=== PATIENT | female | born 1985 | race Hispanic/Latino ===

== ENCOUNTER 2022-06-24 07:42 | Outpatient (CLI) | payer BC, OTHER | END 2022-06-24 07:43 | disposition home or self-care (01) | LOC: CSHLAB 07:42 | PROVIDERS: ATTEND Obstetrics & Gynecology | DX: Z20.822 Contact with and (suspected) exposure to COVID-19 (principal) | CPT/HCPCS: 87811 ==

== ENCOUNTER 2022-06-28 05:21 | Inpatient (IN) | payer BC, OTHER ==
[2022-06-28] MEDS ORDERED: Promethazine HCl 25 MG/ML VIAL IM PRN (05:45)
[2022-06-28] MEDS ORDERED: Ondansetron PF 4 MG/2 ML Vial IVP PRN ×2 (05:45→16:12)
[2022-06-28] MEDS ORDERED: Lidocaine 1% (PF) 30 ML VIAL SC PRN (05:45)
[2022-06-28] MEDS ORDERED: Ibuprofen 800 MG TAB PO PRN (05:45)
[2022-06-28] MEDS ORDERED: NS w/ Oxytocin 30 units 500 ML IV SCH ×2 (05:45)
[2022-06-28] MEDS ORDERED: HYDROcodone/Acetaminophen 5/325 mg Tablet PO PRN ×3 (05:45→16:12)
[2022-06-28] MEDS ORDERED: hydrALAZINE 20 MG/ML VIAL SLOW IVP PRN ×2 (05:45→16:12)
[2022-06-28 05:47] VITALS: BMI 32.9
[2022-06-28 06:26] LABS: Hemoglobin 12.2 g/dL (12.0-15.5); Mean Corpuscular HGB CONC 34.3 g/dL (32.0-36.0); Mean Corpuscular Hemoglobin 26.9 pg (27.0-33.0); Mean Corpuscular Volume 78.6 fl (81.6-98.3); Platelet Count 275 10x3/uL (150-450); RBC Distribution Width 13.4 % (11.5-14.5); Red Blood Cell (RBC) Count 4.53 10x6/uL (3.90-5.03); White Blood Cell (WBC) Count 9.7 10x3/uL (3.5-10.5)
[2022-06-28 07:03] LABS: HBSAg Index 0.22 S/CO (0-0.99); Hep B Surf Ag Non-Reactive S/CO (NonReactive)
[2022-06-28 07:43] LABS: Syphilis Antibody Nonreactive (Nonreactive); Syphilis Antibody Index 0.03 S/CO (<1.00 Non-Reactive)
[2022-06-28] MEDS: Lactated Ringer's 1,000 ML IV SCH ×2 (08:03→14:06)
[2022-06-28] MEDS: Misoprostol 200 MCG TAB ONE ×2 (15:12→17:59)
[2022-06-28] MEDS ORDERED: Bisacodyl 10 MG SUPP PR PRN (16:12)
[2022-06-28] MEDS ORDERED: Boostrix 0.5 ML (Tdap) VIAL (>/=7 yrs of age) IM ONE (16:12)
[2022-06-28] MEDS ORDERED: diphenhydrAMINE 25 MG CAP PO PRN (16:12)
[2022-06-28] MEDS ORDERED: Benzocaine-Menthol 82.5 ML CAN TOP PRN (16:12)
[2022-06-28] MEDS ORDERED: Milk Of Magnesia 30 ML UDCUP PO PRN (16:12)
[2022-06-28] MEDS ORDERED: Lanolin Ointment 7 GM TUBE TOP PRN (16:12)
[2022-06-28] MEDS ORDERED: Preparation H Ointment 28 GM TUBE PR PRN (16:12)
[2022-06-28] MEDS ORDERED: Misoprostol 200 MCG TAB PR SCH (16:15)
[2022-06-28] MEDS: Ferrous Sulfate 325 MG TAB PO SCH (17:59)
[2022-06-28] MEDS: Docusate 100 MG CAP PO SCH (21:19)
[2022-06-28] MEDS: HYDROcodone/Acetaminophen 5/325 mg Tablet PO PRN (21:20)
[2022-06-28] MEDS: Ibuprofen 800 MG TAB PO SCH (21:21)
[2022-06-29] MEDS: Ibuprofen 800 MG TAB PO SCH ×3 (05:29→21:10)
[2022-06-29] MEDS: Docusate 100 MG CAP PO SCH ×2 (09:12→21:10)
[2022-06-29] MEDS: Prenatal Vitamin 1 TAB PO SCH (09:13)
[2022-06-29] MEDS: HYDROcodone/Acetaminophen 5/325 mg Tablet PO PRN (09:13)
[2022-06-29] MEDS: Ferrous Sulfate 325 MG TAB PO SCH ×2 (09:14→16:19)
[2022-06-30] MEDS: HYDROcodone/Acetaminophen 5/325 mg Tablet PO PRN (02:16)
[2022-06-30] MEDS: Ibuprofen 800 MG TAB PO SCH ×2 (05:36→14:08)
[2022-06-30 08:29] VITALS: BP 99/54; TEMP 98
[2022-06-30] MEDS: Docusate 100 MG CAP PO SCH (08:37)
[2022-06-30] MEDS: Prenatal Vitamin 1 TAB PO SCH (08:37)
[2022-06-30] MEDS: Ferrous Sulfate 325 MG TAB PO SCH (08:38)
== END 2022-06-30 16:00 | disposition home or self-care (01) | DRG 807 ==
LOC: CSHLD 05:21 → CSHPP 17:12
PROVIDERS: ADMIT Obstetrics & Gynecology; ATTEND Obstetrics & Gynecology
PROC: 10E0XZZ Delivery of Products of Conception, External Approach (ICD-10-PCS; principal; 2022-06-28)
PROC: 10907ZC Drainage of Amniotic Fluid, Therapeutic from Products of Conception, Via Natural or Artificial Opening (ICD-10-PCS; 2022-06-28)
DX: O35.8XX0 Maternal care for other (suspected) fetal abnormality and damage, not applicable or unspecified (principal); Z37.0 Single live birth; Z3A.39 39 weeks gestation of pregnancy
CPT/HCPCS: 85027; 86780; 86850; 86900; 86901; 87340; J0595; J2590; J7120